=== PATIENT | male | born 1940 | race Caucasian/White ===

== ENCOUNTER 2019-08-08 10:58 | Inpatient (IN) | payer MEDICARE, OTHER ==
[~2019-08-08] VITALS: Ht 175.3 cm; Wt 105.2 kg
[2019-08-08 11:01] VITALS: BP 195/66
[2019-08-08 11:14] LABS: ABSOLUTE BASOPHILS 0.1 thou/uL (0.0-0.2); ABSOLUTE MONOCYTES 0.5 thou/uL (0.0-1.2); ABSOLUTE NEUTROPHILS 6.5 thou/uL (1.6-8.1); BASOPHILS 0.9 %; EOSINOPHILS 0.2 %; HEMATOCRIT 47.7 % (42.0-52.0); HEMOGLOBIN 16.6 gm/dL (14.0-18.0); MCH 31.4 pg (26.0-34.0); MCHC 34.8 g/dL (28.0-37.0); MCV 90.3 fL (80.0-100.0); MONOCYTES 5.5 %; MPV 7.5 fl. (7.2-11.1); NUCLEATED RBCS 0 /100WBC; PLATELET COUNT* 263 thou/uL (150-400); POLYS 71.4 %; RBC 5.28 mil/uL (4.50-6.00); RDW-CV 13.2 % (10.5-14.5)
[2019-08-08 11:23] LABS: CALCIUM 9.8 mg/dL (8.5-10.1); CREATININE 1.3 mg/dL (0.6-1.3); POTASSIUM 4.1 mmol/L (3.5-5.1)
[2019-08-08 11:26] LABS: APTT 27.3 Seconds (25.0-31.3); PROTIME 10.7 Seconds (9.20-11.50)
[2019-08-08] MEDS ORDERED: FOSINOPRIL SODI40 M1 PO (11:31)
[2019-08-08] MEDS ORDERED: AMARYL4 MG PO (11:32)
[2019-08-08] MEDS ORDERED: METFORMIN HCL500 M3 PO (11:32)
[2019-08-08] MEDS ORDERED: SIMVASTATIN80 MG PO (11:33)
[2019-08-08] MEDS ORDERED: ASA81BEC PO (11:34)
[2019-08-08] MEDS ORDERED: TENORMIN25 MG PO (11:34)
[2019-08-08] MEDS ORDERED: ALLOPURINOL 10100 M3 PO (11:34)
[2019-08-08] MEDS ORDERED: FISH OIL 1,001000 M3 PO (11:35)
[2019-08-08] MEDS ORDERED: NORVASC 2.5 MG2.5 M1 PO (11:35)
[2019-08-08 11:48] LABS: ALBUMIN 4.2 g/dL (3.4-5.0); CK-MB MASS 1.9 ng/mL (<0.5-3.6); MAGNESIUM 1.9 mg/dL (1.8-2.4); TOTAL BILIRUBIN 0.5 mg/dL (<0.1-1.0); TOTAL PROTEIN 8.3 g/dL (6.4-8.2)
[2019-08-08 12:29] LABS: INFLUENZA A ANTIGEN Negative (Negative); INFLUENZA B ANTIGEN Negative (Negative)
[2019-08-08 14:45] VITALS: BP 172/84
[2019-08-08 15:30] VITALS: BP 145/82
[2019-08-09] VITALS: BP 102/61
[2019-08-09 04:00] VITALS: BP 143/67
[2019-08-09 05:45] LABS: HEMATOCRIT 40.6 % (42.0-52.0); MCH 31.2 pg (26.0-34.0); MCHC 34.9 g/dL (28.0-37.0); MCV 89.5 fL (80.0-100.0); MPV 7.8 fl. (7.2-11.1); RBC 4.54 mil/uL (4.50-6.00); WBC 6.6 thou/uL (4.0-11.0)
[2019-08-09 06:09] LABS: CALCIUM 9.2 mg/dL (8.5-10.1); CREATININE 1.2 mg/dL (0.6-1.3); POTASSIUM 4.2 mmol/L (3.5-5.1)
[2019-08-09 06:11] LABS: HEMOGLOBIN 14.2 gm/dL (14.0-18.0)
[2019-08-09 08:00] VITALS: BP 143/81
--- NOTE | 2019-08-09 10:11 | EKG ---
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 08/09/19 1010 00 00 Rocky Muhammad MD, FAC /EPI
[2019-08-09 12:00] VITALS: BP 151/92
[2019-08-09 16:00] VITALS: BP 121/78
[2019-08-09 20:00] VITALS: BP 123/67
[2019-08-10] VITALS: BP 156/56
[2019-08-10 08:00] VITALS: BP 139/77
[2019-08-10 12:26] VITALS: BP 160/75
[2019-08-10 16:48] VITALS: BP 168/74
[2019-08-10 20:00] VITALS: BP 142/66
[2019-08-11 08:00] VITALS: BP 167/100
[2019-08-11] MEDS ORDERED: SIMETHICON CHEW80 M1 PO (11:51)
[2019-08-11] MEDS ORDERED: SENNA-TIME S T1 EACH PO (11:51)
[2019-08-11] MEDS ORDERED: MIRALAX17 GM PO (11:51)
[2019-08-11] MEDS ORDERED: REGLAN 5 MG TAB5 MG PO (14:09)
[2019-08-11 16:00] VITALS: BP 141/71
[2019-08-11 21:55] VITALS: BP 143/70
[2019-08-12 05:58] LABS: AMP/METHAMP Negative (Negative); BARBITURATES Negative (Negative); BENZODIAZEPINES Negative (Negative); COCAINE Negative (Negative); METHADONE Negative (Negative); OPIATES Negative (Negative); PCP Negative (Negative); THC Negative (Negative)
[2019-08-12 09:14] VITALS: BP 141/76
[2019-08-12 16:26] VITALS: BP 141/76
[2019-08-12 17:12] VITALS: BP 141/76
== END 2019-08-12 17:50 | disposition home health service (06) | DRG 392 ==
LOC: M.ERS 10:58 → M.TBA-ER 13:46 → M.2W 13:46 → M.ORTHSURG 08-10 18:11
PROVIDERS: Family Medicine; ADMIT Family Medicine
DX: K21.9 Gastro-esophageal reflux disease without esophagitis (principal); R07.9 Chest pain, unspecified; E11.9 Type 2 diabetes mellitus without complications; I25.10 Atherosclerotic heart disease of native coronary artery without angina pectoris; M19.90 Unspecified osteoarthritis, unspecified site; E78.5 Hyperlipidemia, unspecified; K59.00 Constipation, unspecified; I10 Essential (primary) hypertension; N40.0 Benign prostatic hyperplasia without lower urinary tract symptoms; Z87.891 Personal history of nicotine dependence; Z79.84 Long term (current) use of oral hypoglycemic drugs; Z79.82 Long term (current) use of aspirin; I25.2 Old myocardial infarction; Z79.899 Other long term (current) drug therapy; Z90.49 Acquired absence of other specified parts of digestive tract